=== PATIENT | female | born 1940 | race Caucasian/White ===

== ENCOUNTER 2016-11-09 17:07 | Inpatient (IN) | payer OTHER, MEDICAID ==
[~2016-11-09] VITALS: Ht 172 cm; Wt 75.1 kg
--- NOTE | ~2016-11-09 | PR ---
[place], [place] PROGRESS NOTE NAME: MARCE ESPANA [facility] CL[facility] #: [id number] UNIT #: [id number] ROOM: 312 DOCTOR: SOUMYA COATES BIRTHDATE: [birth year] DOS: 11/11/2016 CHIEF COMPLAINT: "Today, I did not sleep all night." SUMMARY OF THE VISIT: She was in the dining room. She had multiple complaints as far as she said that she only slept half and half that she had been up 2 or 3 times during the nights, said that was complaining even that her name was wrong on her dietary slip. Staff reported that she has still been irritable, slamming doors, intrusive, actually threw her walker. Her urine C and S came back today, and it was positive heavy growth of Gram-negative bacilli, and she will be started on an antibiotic. She did get her dose of Monurol yesterday. In addition, her vitamin D level was 28.6, which is low, so I will start her on a vitamin D supplement. She is anxious, agitated at times. Alert and oriented, however. Her mood is hypomanic. Affect is appropriate. She is just in constant movement. PLAN: The plan today is to start her on a vitamin D supplement and also to start Depakote 500 at bedtime in order to not only help her sleep, but hopefully decrease those behaviors that she has been having through the day. Soumya Coates NP CM:PNPIEDAD 8 7 SOUMYA COATES 11/12/16826 interface
--- NOTE | ~2016-11-09 | PR ---
[place], [place] PROGRESS NOTE NAME: MARCE ESPANA UNIT #: [id number] ROOM: 312 DOCTOR: SOUMYA COATES BIRTHDATE: [birth year] DOS: 11/15/16 CHIEF COMPLAINT: "I had a bad night." SUMMARY OF THE VISIT: She was seen in the dining room where she was eating her breakfast. She stated that she was having issues with other residents through the night, felt like another resident was following her around and said that it was irritating to her. She did require p.r.n. medications and then stated that she felt better. Also, of note, her Depakote level was 108.7 yesterday. PLAN: The plan today is discontinue the Depakote because it did not seem to be effective in helping with her mood lability. We started Invega 3 mg q.a.m. and we will titrate that up over the next couple of days. Continue to engage her in individual and more vásquez milieu and discharge her to the least restrictive environment when she is psychologically stable. Soumya Coates NP CM:PNTRANS SOUMYA COATES 11/15/16 1034 MIKA [email or web address].PP
--- NOTE | ~2016-11-09 | PR ---
[place], [place] PROGRESS NOTE NAME: MARCE ESPANA UNIT #: [id number] ROOM: 312 DOCTOR: SOUMYA COATES BIRTHDATE: [birth year] DOS: 11/14/2016 CHIEF COMPLAINT: "What do you want." She was in the dining room, eating her breakfast. She continues to be very talkative. Her speech has actually slowed down though over the past couple of days. Her Depakote was titrated up over the weekend. Her newest complaint has been of having a dry mouth, which she tells me has been going on for years and that she has been using the biotin for years. Staff was concerned about maybe some tardive dyskinesia; that does not seem to be the case; it does seem to be the dry mouth that she has had for several years. So the plan today, we added some vitamin E, just to help out with that whole dry mouth thing. Her valproic acid was just recently increased, we will not titrate that yet. Check a valproic acid level perhaps tomorrow and then go from there. Soumya Coates NP CM:PNTRANS 2 1 SOUMYA COATES 11/15/16221 interface
--- NOTE | ~2016-11-09 | DS ---
[place], [place] DISCHARGE SUMMARY NAME: MARCE ESPANA [facility] CLINICT #: [id number] UNIT #: [id number] ROOM: 312 DOCTOR: SOUMYA COATES BIRTHDATE: [birth year] DOS: 11/16/2016 CHIEF COMPLAINT: Today well, how are you. She was seen sitting in the dining room. She is very pleasant, has been much more redirectable. She was originally admitted from [facility] where she was very agitated. She was unable to be redirected. They were unable to deal with her behaviors there and so she was sent here for inpatient admission. PAST MEDICAL HISTORY: Includes anxiety, constipation, depression, diabetes, hyperlipidemia, neuropathy and vitamin D deficiency. SUMMARY OF HOSPITAL COURSE: Initially, when she came to the unit, she did test positive for urinary tract infection and was treated with a dose of Monuril by the medical people. Her vitamin D level was low and so she was started on vitamin D supplement. She was on Depakote which we attempted to titrate to help with her behaviors. She was throwing things on the unit, being very agitated and unable to be redirected. We attempted to titrate the Depakote that was ineffective and so it was discontinued and she was started on Invega with much improvement. Her mental status at discharge, she is alert and oriented. Affect and mood are appropriate. She is still very talkative. She really needs someone to talk to. 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 She is now stable in both of those conditions. DISPOSITION: She will be discharged back to [facility]. Her scripts have been printed and will be sent with her. Soumya Coates NP CM:DISCHARG [id number] SOUMYA COATES 11/16/16 1313 interface
--- NOTE | ~2016-11-09 | PR ---
[place], [place] PROGRESS NOTE [id number] UNIT #: [id number] ROOM: 312 DOCTOR: KATHY VÁZQUEZ BIRTHDATE: [birth year] DOS: 11/13/2016 CHIEF COMPLAINT: "Good morning." SUMMARY OF VISIT: The patient was interviewed in the dining room where she was sitting playing solIntelliFlo. She engaged in conversation. Her néstor is much less. I will put her in the ____ or close to her baseline. The patient agrees that things are quieting down. She is not racing as much. Discussed with nursing and they felt overall she is doing significantly better. I did discontinue her Depakote ER yesterday in lieu of just regular Depakote 3 times a day. This appears to be helping. MENTAL STATUS: Alert and oriented to person, place, approximate time. I think she is still ____. No overt signs of auditory or visual hallucinations, delusions, or paranoia. She can have racing thoughts, jumps from topic to topic, but she is much more redirectable. PLAN: I am going to continue with the medications as is right now. Again, she is currently being treated for UTI. I did find that she was vitamin D and B12 deficient, started her on supplementation there and I significantly changed her Depakote yesterday. I want to see how she does over the next 24 hours and then probably check a valproic acid level and continue to adjust Depakote as needed. IDALIA VÁZQUEZ CNP CM:PNTRANS [id number] KATHY VÁZQUEZ 11/13/16 1701 interface
--- NOTE | ~2016-11-09 | PR ---
[place], [place] PROGRESS NOTE NAME: MARCE ESPANA [facility] #: [id number] UNIT #: [id number] ROOM: 312 DOCTOR: KATHY VÁZQUEZ BIRTHDATE: [birth year] DOS: 11/12/2016 CHIEF COMPLAINT: "Good morning." SUMMARY OF VISIT: The patient was interviewed in the dining room, where she was quite manic. The main voiced complaint and concern from nursing is that the patient has been manic all day with increased behaviors. The patient acknowledges that she says she feels hiked up too much and that this has been going on for a while. Her other complaint is of her tinnitus. She has had this since she was 47, and it was just overwhelming. MENTAL STATUS: She is alert and oriented to person, place, approximate time. She is hypomanic. No overt signs of auditory or visual hallucinations, delusions or paranoia. Mood can be quite labile at times with regards to her behaviors, some memory gaps, but overall intact. PLAN: I am going to discontinue her Depakote ER, I am going to bump it up. I talked to the patient and said I want to be kind of aggressive with her medications that she was actually grateful for this. So, I am going to increase change her Depakote to ER to just regular Depakote 500 mg 3 times a day. Her labs were also of very low vitamin D and B12. We have already ordered the vitamin D supplementation. I am going to add the B12 supplementation as well. She is being treated for UTI. I will see what the bump up in the Depakote does and if she responds well to it. It looks like she was previously on Haldol, and it was no longer working for her, so we will continue to try to redirect. I will watch for over sedation and adjust Depakote accordingly. IDALIA VÁZQUEZ CNP CM:PNTRANS [phone] KATHY VÁZQUEZ 11/12/16 112 interface
--- NOTE | ~2016-11-09 | WRIGHTHP ---
[place], [place] PATIENT HISTORY AND PHYSICAL EXAM NAME: MARCE ESPANA UNIT #: [id number] ROOM: 309 DOCTOR: SOUMYA COATES BIRTHDATE: [birth year] DOS: 11/10/2016 CHIEF COMPLAINT: "I am still kind of tense. I don't know what is going on." HISTORY OF PRESENT ILLNESS: She is a 76-year-old female who was admitted from [facility]. She had been extremely agitated and was not able to be redirected at the long term and so was sent to the hospital for evaluation. She has a past medical history of anxiety, constipation, depression, diabetes, hyperlipidemia, neuropathy and a vitamin D deficiency. PAST SURGICAL HISTORY: She has none. SOCIAL HISTORY: She denies alcohol or smoking. MENTAL STATUS: She is alert and oriented x 3. Speech pattern is normal. Her mood is good, little irritable. No signs of néstor or hypomania. She has had no overt AV hallucinations, delusions or paranoia. Her processing is good. She is able to answer questions appropriately. Memory, short term memory has just a few gaps. She has had to have it explained to her a couple of times why she is actually here. DIAGNOSIS: Brief psychotic disorder. She has tested positive for urinary tract infection and will receive her first dose of Monurol today. Her UA was positive for nitrite. She had 3+ leukocyte esterase and 2+ bacteria. We are awaiting the results of the culture. She did require a p.r.n. Ativan last evening at 10:45 for extreme agitation that seems to have been effective. She says that she slept well from about midnight on. PLAN: We will get further labs to rule out any organic factors, continue to treat the UTI. We have discontinued her Xanax and her Haldol that she was getting at the long term. cargo and ramp services manager will work with her. She does say that she likes the place where she is, but feels like they have turned against her little. Engage her in individual and vásquez milieu and then return her back to [facility] when she is psychologically stable. [place], [place] PATIENT HISTORY AND PHYSICAL EXAM NAME: MARCE ESPANA UNIT #: [id number] ROOM: [facility] DOCTOR: SOUMYA COATES BIRTHDATE: [birth year] Soumya Coates NP CM:PHYS:PATIENT HISTORY AND PHYSICAL EXAMINATION 5 6 SOUMYA COATES 11/10/16 0956 interface
[2016-11-09] MEDS ORDERED: ASPIRIN ADULT L81 M1 PO (17:23)
[2016-11-09] MEDS ORDERED: CLARITIN10 M1 PO (17:25)
[2016-11-09] MEDS ORDERED: CALCIUM 600 +1 EAC4 PO (17:25)
[2016-11-09] MEDS ORDERED: LEXAPRO5 M1 PO (17:26)
[2016-11-09] MEDS ORDERED: TRAD5TAB1 PO (17:27)
[2016-11-09] MEDS ORDERED: REMERON15 M2 PO (17:27)
[2016-11-09] MEDS ORDERED: ZOCOR20 MG PO (17:28)
[2016-11-09] MEDS ORDERED: SENNA8.6 MG PO (17:30)
[2016-11-09] MEDS ORDERED: SALINE 45 ML45 ML NAS (17:32)
[2016-11-09] MEDS ORDERED: XANAX0.25 MG PO ×2 (17:32→17:37)
[2016-11-09] MEDS ORDERED: HALDOL5 MG PO (18:45)
[2016-11-09] MEDS ORDERED: Haldol Concen2 MG/ML PO (18:46)
[2016-11-09 19:28] VITALS: BP 147/80
[2016-11-09] MEDS ORDERED: A & D OINTMENT1 OIN TP (19:40)
[2016-11-09 20:00] VITALS: BP 147/80
[2016-11-09 22:49] LABS: BILIRUBIN NEGATIVE (NEGATIVE); BLOOD NEGATIVE (NEGATIVE); CLARITY SL CLOUDY (CLEAR); COLOR YELLOW (YELLOW); GLUCOSE NEGATIVE (NEGATIVE); KETONE NEGATIVE (NEGATIVE); LEUKO ESTERASE 3+ (NEGATIVE); NITRITE POSITIVE (NEGATIVE); PROTEIN NEGATIVE (NEGATIVE); SPECIFIC GRAVITY <= 1.005 (1.005-1.030); UROBILINOGEN 0.2 E.U./dl (0.2-1.0)
[2016-11-09 22:58] LABS: BACTERIA 2+; WBC 51-100 wbc/hpf (0-5)
[2016-11-09 22:59] LABS: URINE REFLEX COMMENT YES (NO)
[2016-11-09 23:14] VITALS: BP 147/80
[2016-11-10 07:30] LABS: BASO % 0.7 % (0.0-1.0); EOS # 0.1 10*3/uL (0.0-0.4); HEMATOCRIT 41.4 % (37.0-47.0); HEMOGLOBIN 13.2 g/dl (12.0-16.0); LYMPH # 1.3 10*3/uL (1.3-4.4); LYMPH % 32.3 % (27.0-41.0); MEAN CELL VOLUME 88.5 fl (81.0-99.0); MEAN CORPUSCULAR HGB 28.2 pg (27.0-31.0); MEAN CORPUSCULAR HGB CONC 31.9 g/dl (33.0-37.0); MEAN PLATELET VOLUME 10.6 fl (9.6-12.3); MONO # 0.4 10*3/uL (0.1-1.0); MONO % 8.9 % (3.0-9.0); NEUT # 2.2 10*3/uL (2.3-7.9); NEUT % 55.1 % (47.0-73.0); PLATELET COUNT AUTOMATED 148 10*3/uL (130-400); RED BLOOD COUNT 4.68 10*6/uL (4.10-5.10)
[2016-11-10 07:44] LABS: ALBUMIN 3.2 gm/dl (3.1-4.5); BILIRUBIN, TOTAL 0.6 mg/dl (0.2-1.0); POTASSIUM 4.4 mmol/L (3.5-5.1); TOTAL PROTEIN 5.5 gm/dL (6.4-8.2)
[2016-11-10 07:52] LABS: HEMOGLOBIN A1c 7.4 % (4.8-5.6)
[2016-11-10 07:53] LABS: THYROID STIM HORMONE (HS) 2.52 uIU/ml (0.358-4.75)
[2016-11-10 08:10] VITALS: BP 148/78
[2016-11-10 08:38] LABS: FOLIC ACID 8.55 ng/mL (>5.38); VITAMIN D, 25-HYDROXY 28.6 ng/mL (30-100)
[2016-11-10 19:00] VITALS: BP 153/64
[2016-11-11 08:00] VITALS: BP 135/70
[2016-11-11 09:59] LABS: VITAMIN D, 25-HYDROXY 27.9 ng/mL (30-100)
[2016-11-12 08:22] VITALS: BP 151/67
[2016-11-12 19:52] VITALS: BP 158/64
[2016-11-13 08:00] VITALS: BP 158/71
[2016-11-13 19:42] VITALS: BP 125/60
[2016-11-14 07:46] VITALS: BP 136/51
[2016-11-14 19:57] VITALS: BP 140/82
[2016-11-15 08:10] VITALS: BP 154/62
[2016-11-15 20:17] VITALS: BP 148/64
[2016-11-16] MEDS ORDERED: PALIPERIDONE ER3 MG PO (07:59)
[2016-11-16] MEDS ORDERED: MIRTAZAPINE15 M2 PO (07:59)
[2016-11-16 09:43] VITALS: BP 121/64
[2016-11-16] MEDS ORDERED: B12,B-12,B 12500 MC1 PO (10:29)
[2016-11-16] MEDS ORDERED: VITAMIN D2400 UNIT PO (10:29)
== END 2016-11-16 11:44 | disposition other institution (70) | DRG 885 ==
LOC: 3N 17:07
PROVIDERS: Registered Nurse
DX: F23 Brief psychotic disorder (principal); E11.42 Type 2 diabetes mellitus with diabetic polyneuropathy; F33.1 Major depressive disorder, recurrent, moderate; F41.9 Anxiety disorder, unspecified; E78.5 Hyperlipidemia, unspecified; E55.9 Vitamin D deficiency, unspecified; Z88.6 Allergy status to analgesic agent; Z91.011 Allergy to milk products; Z79.82 Long term (current) use of aspirin; Z79.899 Other long term (current) drug therapy